=== PATIENT | female | born 1990 | race Caucasian/White ===

== ENCOUNTER → 2017-02-23 | Outpatient (CLI) | payer OTHER | LOC: COL.RAD 07:37 | DX: O03.9 Complete or unspecified spontaneous abortion without complication (principal) | CPT/HCPCS: Q9967 ==

== ENCOUNTER → 2024-02-16 | Outpatient (CLI) | payer BC | LOC: COL.RAD 15:33 | DX: Z36.9 Encounter for antenatal screening, unspecified (principal) ==